=== PATIENT | male | born 1995 | race Two or more races ===

== ENCOUNTER 2024-06-10 18:21 | Emergency (ER) | payer OTHER ==
[~2024-06-10] VITALS: Ht 170.2 cm; Wt 99.8 kg
[2024-06-10 18:23] VITALS: BP 107/68; O2SAT 98
[2024-06-10] MEDS ORDERED: ACETAMINOPHEN 500 MG GEL..CAP PO ONE ×3 (20:00→20:40)
[2024-06-10 20:52] LABS: HEMATOCRIT 40.2 % (39.0-48.0); HEMOGLOBIN 13.3 g/dL (13-16.00); MEAN CELL VOLUME 89.4 fL (80.0-100.00); MEAN CORPUSCULAR HEMOGLOBIN 29.6 pg (27.00-32.0); MEAN CORPUSCULAR HGB CONC 33.2 g/dl (32.0-36.0); PLATELET COUNT 324 K/uL (150-450); RED CELL DISTRIBUTION WIDTH 13.9 % (11.5-14.5)
[2024-06-10 21:02] LABS: COVID-19 AG NEGATIVE (NEGATIVE)
[2024-06-10 21:08] LABS: INFLUENZA A AG NEGATIVE (NEGATIVE)
== END 2024-06-10 22:30 ==
LOC: ER 18:22
PROVIDERS: Preventive Medicine Public Health & General Preventive Medicine
DX: R50.9 Fever, unspecified (principal); Z20.822 Contact with and (suspected) exposure to COVID-19

== ENCOUNTER 2024-06-11 17:48 | Emergency (ER) | payer OTHER ==
[~2024-06-11] VITALS: Ht 170.2 cm; Wt 99.8 kg
[2024-06-11 18:12] VITALS: BP 106/69; O2SAT 98
[2024-06-11] MEDS ORDERED: ACETAMINOPHEN 500 MG GEL..CAP PO ONE ×2 (18:44→18:45)
[2024-06-11] MEDS ORDERED: 0.9 % SODIUM CHLORIDE 1,000 ML IV SCH (18:45)
[2024-06-11 19:40] LABS: HEMATOCRIT 40.1 % (39.0-48.0); HEMOGLOBIN 13.6 g/dL (13-16.00); MEAN CELL VOLUME 89.5 fL (80.0-100.00); MEAN CORPUSCULAR HEMOGLOBIN 30.3 pg (27.00-32.0); MEAN CORPUSCULAR HGB CONC 33.9 g/dl (32.0-36.0); PLATELET COUNT 301 K/uL (150-450); RED BLOOD COUNT 4.49 M/uL (4.00-6.00); RED CELL DISTRIBUTION WIDTH 13.6 % (11.5-14.5)
[2024-06-11 19:42] LABS: ERYTHROCYTE SEDIMENTATION RATE 19 mm/hr
[2024-06-11 20:44] LABS: ALBUMIN 3.9 gm/dL (3.4-5.0); BILIRUBIN TOTAL 0.73 mg/dL (0.3-1.2); CALCIUM 8.5 mg/dL (8.5-10.1); CREATININE SERUM 0.98 mg/dL (0.70-1.30); GFR 90.42; GLOBULINA 4.2 G/DL (2.4-3.5); POTASSIUM 4.97 mEq/L (3.5-5.1); TOTAL PROTEIN 8.1 gm/dL (6.4-8.2)
[2024-06-11 20:51] LABS: C-REACTIVE PROTEIN 3.04 MG/DL (0.00-0.29)
[2024-06-11 21:22] LABS: URINE APPEARANCE Clear; URINE BILIRRUBIN Negative (NEGATIVE); URINE BLOOD Negative; URINE COLOR Yellow; URINE GLUCOSE Negative (NEGATIVE); URINE KETONE Trace (NEGATIVE); URINE LEUKOCYTE Negative; URINE NITRATE Negative; URINE PROTEIN Negative (NEGATIVE)
[2024-06-11 21:25] LABS: URINE BACTERIA 7.3 uL (0.0-1933); URINE EPITHELIAL CELLS 1.7 uL (0.0-38.8); URINE RBC 2.7 uL (0.0-20.8); URINE WBC 4.1 uL (0.0-23.2)
== END 2024-06-11 23:16 | disposition home or self-care (01) ==
LOC: ER 17:49
PROVIDERS: General Practice
DX: B34.9 Viral infection, unspecified (principal)